=== PATIENT | male | born 1965 | race Caucasian/White ===

== ENCOUNTER 2019-08-25 16:19 | Emergency (ER) | payer MEDICAID ==
[~2019-08-25] VITALS: Ht 175.3 cm; Wt 74.8 kg
--- NOTE | 2019-08-25 16:31 | NUR ---
PT [facility]IBRA C/O NECK PAIN THAT STARTED OUT OF NO WHERE PER FRIEND. PT AAOX4. AMBULATORY. PT BEING AGGRESIVE AND CURSING. MD AT BEDSIDE FOR EVAL.
[2019-08-25] MEDS ORDERED: IBUPROFEN 400 MG TABLET ONE (16:34)
[2019-08-25] MEDS ORDERED: oxyCODONE/APAP (5/325 MG) 1 UDTAB TABLET ONE (16:34)
[2019-08-25] MEDS ORDERED: oxyCODONE/APAP (5/325 MG) 1 UDTAB TABLET PO ONE (17:00)
[2019-08-25] MEDS ORDERED: IBUPROFEN 400 MG TABLET PO ONE (17:00)
[2019-08-25] MEDS ORDERED: LORAZEPAM 1 MG TABLET ONE (17:14)
--- NOTE | 2019-08-25 17:28 | NUR ---
Manager Medical Writing at bedside for blood collection
[2019-08-25 17:30] LABS: BASOPHILS % (AUTO) 0.5 % (0.0-2.0); EOSINOPHILS % (AUTO) 2.2 % (0.0-6.0); HEMATOCRIT 44 % (39-51); HEMOGLOBIN 14.8 g/dL (13.5-17.5); LYMPHOCYTES % (AUTO) 17.2 % (20.0-44.0); MEAN CORPUSCULAR HGB CONC 34 g/dl (31.0-36.0); MEAN CORPUSCULAR VOLUME 88 fL (80-96); MONOCYTES # (AUTO) 0.7 /CMM (0.1-1.30); MONOCYTES % (AUTO) 12.7 % (2.0-12.0); NEUTROPHILS # (AUTO) 3.9 /CMM (1.8-8.9); NEUTROPHILS % (AUTO) 67.4 % (43.0-81.0); PLATELET COUNT (AUTO) 205 /CMM (150-450); RED BLOOD CELL COUNT(AUTO) 4.95 MIL/uL (4.5-6.0); WHITE BLOOD COUNT (AUTO) 5.7 K/uL (4.3-11.0)
[2019-08-25] MEDS ORDERED: LORAZEPAM 1 MG TABLET PO ONE (17:30)
[2019-08-25] MEDS ORDERED: HYDROMORPHONE 1 MG/1 ML DISP.SYRIN ONE (17:34)
[2019-08-25 17:40] LABS: CALCIUM, SERUM 9.2 mg/dL (8.5-10.1); CREATININE 1.1 mg/dL (0.6-1.3); POTASSIUM 4.3 mmol/L (3.5-5.1)
[2019-08-25 17:46] LABS: ALBUMIN 3.5 g/dL (3.4-5.0); BILIRUBIN,TOTAL 0.6 mg/dL (0.2-1.0); TOTAL PROTEIN, SERUM 7.6 g/dL (6.4-8.2)
[2019-08-25] MEDS ORDERED: CT SWABBABLE VALVE TRANS SET 1 EA INFUS.SET MC ONE (17:47)
[2019-08-25] MEDS ORDERED: IV NS 0.9% 250 ML IV ONE (17:48)
[2019-08-25] MEDS ORDERED: IOHEXOL-300 100 ML VIAL IV ONE (17:48)
[2019-08-25] MEDS ORDERED: HYDROMORPHONE 1 MG/1 ML DISP.SYRIN IV ONE (18:00)
--- NOTE | 2019-08-25 18:36 | NUR ---
Patient is resting comfortably in bed. Easily aroused. VSS.
--- NOTE | 2019-08-25 18:46 | NUR ---
Patient is resting comfortably in bed. Easily aroused. VSS.
--- NOTE | 2019-08-25 19:15 | NUR ---
XRAY AT BEDSIDE
[2019-08-25 20:45] VITALS: BP 148/86
--- NOTE | 2019-08-25 20:45 | NUR ---
rPatient is resting comfortably in bed. Easily aroused. VSS. Girlfriend at bedside
--- NOTE | 2019-08-25 21:01 | NUR ---
Patient does not wish to proceed with medical care recommended by . Patient given information related to possible complications, up to and including , which could occur as a result of leaving the hospital at this time. Patient verbalizes understanding of risks involved due to leaving against medical advice. Patient has signed AMA form. Pt did not signed the AMA form.
--- NOTE | 2019-08-25 21:01 | NUR ---
Pt being aggressive. IV removed. Catheter intact and site benign. Pressure and 4x4 applied to site. No bleeding noted.
== END 2019-08-25 21:03 | disposition left against medical advice (07) ==
LOC: ER 16:25
DX: M54.2 Cervicalgia (principal); Z85.72 Personal history of non-Hodgkin lymphomas
CPT/HCPCS: 36415; 72050; 80053; 85025; 96374; 99284; J1170; J7050; Q9967

== ENCOUNTER 2019-08-27 08:51 | Emergency (ER) | payer MEDICAID ==
[~2019-08-27] VITALS: Ht 175.3 cm; Wt 74.8 kg
--- NOTE | 2019-08-27 09:00 | NUR ---
[id number] C/O NECK AND BACK PAIN X 48 HOURS, PT IS AAOX4, NOT IN RESPIRATORY DISTRESS, BELIGERENT TOWARDS STAFF MEMBERS, HOOKED TO MONITOR, KEPT RESTED AND COMFORTABLE, WILL CONTINUE TO MONITOR. AWAITING ER MD FOR EVAL.
[2019-08-27] MEDS ORDERED: HYDROCODONE/APAP 10/325MG 1 EA TABLET ONE (09:11)
[2019-08-27] MEDS ORDERED: IBUPROFEN 600 MG TABLET PO ONE ×2 (09:11→09:30)
--- NOTE | 2019-08-27 09:28 | NUR ---
PT REFUSED BLOOD DRAW AWARE.
[2019-08-27] MEDS ORDERED: HYDROCODONE/APAP 10/325MG 1 EA TABLET PO ONE (09:30)
--- NOTE | 2019-08-27 10:00 | NUR ---
PT IS WHEELED TO CT SCAN VIA [facility].
--- NOTE | 2019-08-27 11:41 | NUR ---
FOOD TRAY PROVIDED.
[2019-08-27 11:42] VITALS: BP 128/81
--- NOTE | 2019-08-27 12:20 | NUR ---
Patient given written and verbal discharge instructions. Patient verbalizes understanding of instructions. Patient is ambulatory with steady gait. Refuses offer of [facility] placement. Patient given list of available shelters in surrounding area.
== END 2019-08-27 12:21 | disposition home or self-care (01) ==
LOC: ER 08:56
DX: M54.2 Cervicalgia (principal); Z59.0 Homelessness; Z85.830 Personal history of malignant neoplasm of bone; Z87.898 Personal history of other specified conditions
CPT/HCPCS: 72125-TC